=== PATIENT | female | born 1980 | race Caucasian/White ===

== ENCOUNTER 2018-04-11 08:36 | Outpatient (CLI) | payer OTHER | END 2018-04-11 08:37 | disposition home or self-care (01) | LOC: CP 08:36 | PROVIDERS: ATTEND Family Medicine | DX: R06.02 Shortness of breath (principal) | CPT/HCPCS: 94060; 94727 ==

== ENCOUNTER 2018-05-26 10:06 | Outpatient (CLI) | payer OTHER ==
--- NOTE | 2018-05-26 10:58 | RAD ---
CHEST PA AND LATERAL: History: 37-year-old female with history of dyspnea. FINDINGS: Heart size is normal. The lungs are clear. No pneumonia, edema, or pleural effusion. There is a brace let-like ring of small opacities at the level of the GE junction. This is in the location of where a gastric band could be positioned, but this certainly could also represent a swallowed foreign body at the GE junction. IMPRESSION: No significant acute intrathoracic disease. Somewhat unusual bracelet appearing abnormal opacity at t he GE junction region. I have not seen any surgical band that has this appearance. Conceivably this c ould represent a swallowed foreign body at the GE junction region. Findings were discussed with Dr. Alexander charles. He will correlate this finding when he sees the patient this afternoon. POS: [facility]
== END 2018-05-26 10:07 | disposition home or self-care (01) ==
LOC: RAD 10:06
PROVIDERS: ATTEND Internal Medicine Critical Care Medicine
DX: R06.00 Dyspnea, unspecified (principal)
CPT/HCPCS: 71046

== ENCOUNTER 2018-05-27 09:20 | Emergency (ER) | payer OTHER ==
[2018-05-27 10:04] LABS: #Basophils 0.1 thou/uL (0.0-0.2); #Lymphocytes 1.4 thou/uL (1.20-3.40); #Monocytes 0.7 thou/uL (0.11-0.59); #Neutrophils 5.7 thou/uL (1.40-6.50); %Eosinophils 0.5 % (0.0-10.0); %Lymphocytes 17.9 % (21.0-51.0); %Monocytes 9.1 % (0.0-10.0); %Neutrophils 71.5 % (42.0-75.0); BHCG - Serum Negative (NEGATIVE); Hemoglobin 14.9 g/dL (12.0-16.0); Mean Corpuscular HGB CONC 34.3 g/dL (32.0-36.0); Mean Corpuscular Hemoglobin 33.5 pg (27.0-31.0); Mean Corpuscular Volume 97.5 fL (78.0-98.0); Mean Platelet Volume 6.2 fL (7.4-10.4); Platelet Count 321 thou/uL (130-400); Pregs Control Background? CLEAR/WHITE (CLR/WHITE); Pregs Control Bar Appear? YES (CONTROL BAR); RBC Distribution Width 11.6 % (11.5-14.5); Red Blood Cell (RBC) Count 4.45 mill/uL (4.20-5.40); White Blood Cell (WBC) Count 7.9 thou/uL (4.8-10.8)
[2018-05-27 10:10] LABS: Bilirubin Negative (Negative); Blood, Urine Negative (Negative); Clarity CLEAR (Clear); Glucose, Urine (Dipstick) Negative (Negative); Leukocyte Negative (Negative); Nitrite Negative (Negative); Protein, Urine (Dipstick) Negative (Neg-Trace); Specific Gravity, Urine 1.003 (1.002-1.036); Urobilinogen 0.2 mg/dL (0.2-1.0); pH, Urine 6.5 (5.0-9.0)
[2018-05-27 10:15] LABS: ALT (SGPT) 17 U/L (8-55); AST (SGOT) 22 U/L (5-34); Albumin 4.3 g/dL (3.5-5.0); Alkaline Phosphatase 50 U/L (40-150); Anion Gap 14 mmol/L (10-20); BUN (Urea Nitrogen) 13 mg/dL (7.0-18.7); Bilirubin, Total 0.2 mg/dL (0.2-1.2); CK (CPK) 89 U/L (29-168); Calc. Creatinine Clearance 0 mL/min (70-130); Calcium 10.3 mg/dL (7.8-10.44); Carbon Dioxide 21 mmol/L (22-29); Chloride 107 mmol/L (98-107); Estimated GFR-MDRD 71; Globulin 3.4 g/dL (2.4-3.5); Glucose 106 mg/dL (70-105); Potassium 4.1 mmol/L (3.5-5.1); Protein, Total 7.7 g/dL (6.0-8.3); Sodium 138 mmol/L (136-145)
--- NOTE | 2018-05-27 10:18 | RAD ---
SINGLE VIEW CHEST: Date: 05/27/18 COMPARISON: 05/26/18. HISTORY: Episodes of shortness of breath and heart racing last week. FINDINGS: Single view of the chest shows a normal sized cardiomediastinal silhouette. There is no evidence of c onsolidation, mass, or pleural effusion. The bones are unremarkable. A device is seen at the gastroes ophageal junction which may have treated prior reflux. IMPRESSION: No evidence of acute cardiopulmonary disease. POS: [facility]
--- NOTE | 2018-05-30 14:01 | EKG ---
Test Reason : Blood Pressure : / mmHG Vent. Rate : 098 BPM Atrial Rate : 098 BPM P-R Int : 136 ms QRS Dur : 078 ms QT Int : 332 ms P-R-T Axes : 074 066 040 degrees QTc Int : 423 ms Normal sinus rhythm Possible Left atrial enlargement Borderline ECG Confirmed by BRYANT RAMOS, KENISHA ([id number]), editor producer JIMI JENA ([id number]) on 05/30/2018 2:00:38 PM Referred By: Confirmed By:KENISHA HURTADO MD
== END 2018-05-27 11:17 | disposition home or self-care (01) ==
LOC: ERS 09:20
DX: R06.02 Shortness of breath (principal); R00.2 Palpitations; K21.9 Gastro-esophageal reflux disease without esophagitis; E78.00 Pure hypercholesterolemia, unspecified; Z79.899 Other long term (current) drug therapy
CPT/HCPCS: 71045; 80053; 81003; 82550; 84484; 84703; 85025; 85379; 87086; 93005; 96360; 96361

== ENCOUNTER 2018-08-03 12:45 | Outpatient (CLI) | payer OTHER ==
--- NOTE | 2018-08-03 15:21 | RAD ---
CHEST TWO VIEWS: HISTORY: Correlate with VQ scan. COMPARISON: None. FINDINGS: Normal cardiac silhouette. The pulmonary vessels and hilum are normal. The costophrenic angles are clear. No masses or consolidation. No pneumothorax or osseous abnormalities. Stable foreign body in the left upper quadrant due to previous surgery. IMPRESSION: No acute cardiopulmonary process. POS: [facility]
--- NOTE | 2018-08-03 15:40 | NM ---
[facility] VENTILATION PERFUSION SCAN: HISTORY: Dyspnea. COMPARISON: None. TECHNIQUE: Ventilation imaging was performed after the patient was administered 16.3 mCi of Xenon 133 gas. Perf usion imaging was obtained after the patient was administered 6.2 mCi of Technetium 99m-MAA intraveno usly. FINDINGS: Perfusion images demonstrate homogeneous distribution of radiotracer. No significant radiotracer ret ention. Perfusion images demonstrate homogeneous distribution of the radiotracer. No ventilation perfusion mismatches. IMPRESSION: Normal exam. POS: [facility]
== END 2018-08-03 12:46 | disposition home or self-care (01) ==
LOC: NM 12:45
PROVIDERS: ATTEND Internal Medicine Critical Care Medicine
DX: R06.09 Other forms of dyspnea (principal)
CPT/HCPCS: 71046; 78582; A9540; A9558

== ENCOUNTER 2022-09-27 10:18 | Day surgery (SDC) | payer OTHER ==
[2022-09-24 12:23] VITALS: BMI 22.8
[2022-09-27] MEDS ORDERED: Lidocaine 1% w/Epinephrine 1:100K 20 ML VIAL ONE (10:25)
== END 2022-09-27 12:10 | disposition home or self-care (01) ==
LOC: SDC 10:18
PROVIDERS: ATTEND Internal Medicine Cardiovascular Disease
PROC: 0JPT32Z Removal of Monitoring Device from Trunk Subcutaneous Tissue and Fascia, Percutaneous Approach (ICD-10-PCS; principal; 2022-09-27)
DX: Z45.09 Encounter for adjustment and management of other cardiac device (principal); I49.3 Ventricular premature depolarization; E78.5 Hyperlipidemia, unspecified; E03.9 Hypothyroidism, unspecified; Z79.890 Hormone replacement therapy; Z79.899 Other long term (current) drug therapy
CPT/HCPCS: 33286